=== PATIENT | female | born 1985 ===

== ENCOUNTER → 2016-10-12 | Outpatient (REF) | payer SELFPAY ==
[2016-10-22 07:16] LABS: SUMMARY SEE SEPARATE REPORT
== END ==
LOC: M LAB REF 16:32
PROVIDERS: ATTEND Family Medicine Addiction Medicine
DX: F41.8 Other specified anxiety disorders (principal)

== ENCOUNTER → 2016-11-10 | Outpatient (REF) | payer OTHER | LOC: M LAB REF 16:11 | PROVIDERS: ATTEND Family Medicine Addiction Medicine | DX: F41.8 Other specified anxiety disorders (principal) ==